=== PATIENT | male | born 1945 | race Caucasian/White ===

== ENCOUNTER 2018-03-26 04:02 | Emergency (ER) | payer OTHER ==
[2018-03-26] MEDS ORDERED: SODIUM CHLORIDE 1,000 ML IV STA (04:25)
[2018-03-26] MEDS ORDERED: morphine CARPU-JECT 4 MG/1 ML DISP.SYRIN IVPUSH ONE (04:25)
[2018-03-26 04:30] VITALS: TEMP 97.4; BMI 30.9
[2018-03-26] MEDS ORDERED: ONDANSETRON 4 MG/2 ML VIAL IVPUSH ONE (04:35)
--- NOTE | 2018-03-26 04:35 | PDOC ---
History of Present Illness - General Chief Complaint: Pain, Acute Stated Complaint: ABD PAIN Time Seen by Provider: 03/26/18 04:11 History Source: Patient Exam Limitations: No Limitations - History of Present Illness Initial Comments: 03/26/18 04:32 72 year old male with PMH HTN, DM, kidney stones, bladder spasms presented to ED for lower abdominal pain associated with vomiting x2 days. He described the pain to be located to his RLQ, LLQ, suprapubic area, constant, 10/10, no alleviating or aggravating factors. He denied diarrhea, dysuria, chest pain, shortness of breath, hematuria. Past History - Past Medical History Allergies/Adverse Reactions: Allergies Allergy/AdvReac Type Severity Reaction Status Date / Time No Known Allergies Allergy Verified 03/26/18 04:29 Home Medications: Ambulatory Orders Glyburide 10 mg PO BID 07/08/12 Metformin HCl [Riomet] 850 mg PO BID 07/08/12 Lisinopril 5 mg PO DAILY 03/26/18 Naproxen [Naprosyn -] 500 mg PO BID #14 tablet 03/26/18 [place]-3 Fatty Acids [[place]-3] 1,000 mg PO BID 03/26/18 Tamsulosin HCl 0.4 mg PO BID 03/26/18 traZODone HCL [Trazodone HCl] 100 mg PO DAILY 03/26/18 Diabetes: Yes HTN: Yes Kidney Stones: Yes (enlarged prostate, recurrent UTI>.) - Suicide/Smoking/Psychosocial Hx Smoking Status: No Smoking History: Never smoked Have you smoked in the past 12 months: No Number of Cigarettes Smoked Daily: 0 Information on smoking cessation initiated: No Hx Alcohol Use: No Drug/Substance Use Hx: No Substance Use Type: None Review of Systems - Review of Systems Able to Perform ROS?: Yes Comments:: 03/26/18 04:33 General: denied fever, chills, night sweats, generalized weakness. HEENT: denied sore throat, rhinorrhea, ear pain. Heart: denied chest pain, palpitations, syncope, lower extremity swelling, diaphoresis. Respiratory: denied shortness of breath, cough, sputum production, hemoptysis. Abdomen: admitted to abdominal pain, nausea, vomiting. denied diarrhea, constipation, blood in stool. : denied dysuria, increased urinary frequency, hematuria, urinary incontinence , flank pain. Back: denied back pain. Musculoskeletal: denied joint pain, muscle pain, joint swelling. Neurological: denied headache, dizziness, numbness, tingling, weakness. Skin: denied rash, laceration, abrasion. *Physical Exam - Vital Signs Last Vital Signs Temp Pulse Resp BP Pulse Ox 97.4 F L 74 20 193/91 H 100 03/26/18 04:29 03/26/18 04:29 03/26/18 04:29 03/26/18 04:29 03/26/18 04:29 - Physical Exam Comments: 03/26/18 04:34 Constitutional: Well-nourished, Well-developed, appearing stated age. appears in pain. HEENT: head is normocephalic, atraumatic. EOMI. PERRLA. Neck: supple. Full ROM. Heart: regular rhythm. no murmurs, rubs or gallops. Lungs: clear to auscultation bilaterally. no crackles, rhonchi or wheezing. no stridor. Abdomen: soft, flat. tenderness to RLQ, LLQ, suprapubic area. normal bowel sounds. no rebound, guarding, masses. Back: CVA tenderness negative bilaterally. Extremities: Peripheral pulses intact. No lower extremity edema. Neurological: CN 2-12 grossly intact. Moves all four extremities. Psych: awake, alert, oriented x3. Follows commands. Answers questions appropriately. Moderate Sedation - Procedure Monitoring Vital Signs: Procedure Monitoring Vital Signs Temperature 97.4 F L 03/26/18 04:29 Pulse Rate 74 03/26/18 04:29 Respiratory Rate 20 03/26/18 04:29 Blood Pressure 193/91 H 03/26/18 04:29 O2 Sat by Pulse Oximetry (%) 100 03/26/18 04:29 ED Treatment Course - LABORATORY CBC & Chemistry Diagram: 03/26/18 04:22 03/26/18 04:22 Medical Decision Making - Medical Decision Making 03/26/18 04:34 72 year old male with above PMH presented to ED for lower abdominal pain associated with vomiting. Initial Vital Signs Temp Pulse Resp BP Pulse Ox 97.4 F L 74 20 193/91 H 100 03/26/18 04:29 03/26/18 04:29 03/26/18 04:29 03/26/18 04:29 03/26/18 04:29 Afebrile. No tachycardia. No tachypnea. Hypertensive. - Pt is in pain No hypoxia on room air. Labs ordered: CBC, CMP, UA/UC, Lipase, lactate Imaging ordered: CT abdomen/pelvis with IV contrast Medications ordered: zofran, 1000 cc normal saline bolus, morphine 4 mg\ EKG performed at Bedside US performed: Left kidney no hydro Right kidney no hydro No AAA 03/26/18 05:45 Pt reported improvement of pain with morphine. 03/26/18 06:03 CBC WBC 7.9 K/mm3 (4.0-10.0) 03/26/18 04:22 RBC 5.04 M/mm3 (4.00-5.60) 03/26/18 04:22 Hgb 14.7 GM/dL (11.7-16.9) 03/26/18 04:22 Hct 44.3 % (35.4-49) 03/26/18 04:22 MCV 87.9 fl (80-96) 03/26/18 04:22 MCH 29.2 pg (25.7-33.7) 03/26/18 04:22 MCHC 33.2 g/dl (32.0-35.9) 03/26/18 04:22 RDW 12.7 % (11.9-15.9) 03/26/18 04:22 Plt Count 189 K/MM3 (134-434) 03/26/18 04:22 MPV 8.4 fl (7.5-11.1) 03/26/18 04:22 Absolute Neuts (auto) 6.2 K/mm3 (1.5-8.0) 03/26/18 04:22 Neutrophils % 77.8 % (42.8-82.8) D 03/26/18 04:22 Lymphocytes % 15.2 % (8-40) D 03/26/18 04:22 Monocytes % 6.6 % (3.8-10.2) 03/26/18 04:22 Eosinophils % 0.0 % (0-4.5) D 03/26/18 04:22 Basophils % 0.4 % (0-2.0) 03/26/18 04:22 Nucleated RBC % 0 % (0-0) 03/26/18 04:22 No leukocytosis. No anemia. CMP Sodium 134 mmol/L (136-145) L 03/26/18 04:22 Potassium 4.3 mmol/L (3.5-5.1) 03/26/18 04:22 Chloride 99 mmol/L (98-107) 03/26/18 04:22 Carbon Dioxide 26 mmol/L (21-32) 03/26/18 04:22 Anion Gap 9 MMOL/L (8-16) 03/26/18 04:22 BUN 10 mg/dL (7-18) 03/26/18 04:22 Creatinine 0.7 mg/dL (0.55-1.3) 03/26/18 04:22 Creat Clearance w eGFR > 60 (>60) 03/26/18 04:22 Random Glucose 229 mg/dL (74-106) H 03/26/18 04:22 Calcium 8.7 mg/dL (8.5-10.1) 03/26/18 04:22 Total Bilirubin 1.1 mg/dL (0.2-1) H 03/26/18 04:22 AST 21 U/L (15-37) 03/26/18 04:22 ALT 24 U/L (13-61) 03/26/18 04:22 Alkaline Phosphatase 85 U/L (45-117) 03/26/18 04:22 Total Protein 7.6 g/dl (6.4-8.2) 03/26/18 04:22 Albumin 3.9 g/dl (3.4-5.0) 03/26/18 04:22 Lipase 123 U/L (73-393) 03/26/18 04:22 No clinically concerning electrolyte abnormalities. Hyperglycemia. No transaminitis. Normal lipase. Urine Test Results Urine Color Yellow 03/26/18 05:03 Urine Appearance Clear 03/26/18 05:03 Urine pH 6.0 (5.0-8.0) 03/26/18 05:03 Ur Specific [place] 1.016 (1.010-1.035) 03/26/18 05:03 Urine Protein 2+ (NEGATIVE) H 03/26/18 05:03 Urine Glucose (UA) 3+ (NEGATIVE) H 03/26/18 05:03 Urine Ketones Trace (NEGATIVE) H 03/26/18 05:03 Urine Blood Negative (NEGATIVE) 03/26/18 05:03 Urine Nitrite Negative (NEGATIVE) 03/26/18 05:03 Urine Bilirubin Negative (<2.0 mg/dL) 03/26/18 05:03 Ur Leukocyte Esterase Negative (NEGATIVE) 03/26/18 05:03 No evidence of UTI. No blood in urine. - Kidney stone unlikely Spilling glucose into urine. 03/26/18 07:05 Lactate 1.1 - Mesenteric ischemia unlikely. Pt signed out to Dr. Davis. *DC/Admit/Observation/Transfer Diagnosis at time of Disposition: Bladder spasms Abdominal pain Qualifiers: Abdominal location: lower abdomen, unspecified Qualified Code(s): R10.30 - Lower abdominal pain, unspecified - Discharge Dispostion Disposition: HOME Condition at time of disposition: Good - Prescriptions Prescriptions: Naproxen [Naprosyn -] 500 mg PO BID #14 tablet - Referrals Referrals: Sergey Barcenas [Other] Vaughn Foote MD [Staff Physician] - - Patient Instructions Printed Discharge Instructions: DI for Abdominal Pain-Adult Additional Instructions: Te vieron aqu hoy por dolor abdominal. Radha pruebas fueron negativas para cualquier infeccin o problemas en el abdomen. Usted puede tener espasmos de vejiga. Llam al Dr. Foote y l sugiere continuar con Naprosyn para controlar el dolor. Usted debe programar para hacer ermias amanda en la oficina. Por favor, trate de programar ermias amanda en los prximos patel. Ermias receta para Naprosyn fue enviada a cedeño farmacia. Tan segn las indicaciones. Regrese a la augie de emergencias si el dolor empeora, observa collins en la orina o en las heces, comienza a vomitar, tiene fiebre o si aparece algn sntoma nuevo. Latasha You were seen here today for abdominal pain. Your tests were negative for any infection or problems in the abdomen. You may have bladder spasms. I called Dr. Foote and he suggests continuing Naprosyn for pain control. You should schedule to make an appointment in the office. Please try to schedule an appointment in the next few days. A prescription for Naprosyn was sent to your pharmacy. Take as directed. Come back to the emergency room if pain gets worse, you notice blood in the urine or stool, you start vomiting, you have fever, or if any new concerning symptom develops. Thank you Print Language: BELARUSIAN - Post Discharge Activity
[2018-03-26] MEDS ORDERED: ONDANSETRON 4 MG/2 ML VIAL ONE (04:38)
[2018-03-26] MEDS ORDERED: morphine SULFATE 4 MG/ML VIAL ONE (04:38)
[2018-03-26 05:07] LABS: BASO % 0.4 % (0-2.0); HEMATOCRIT 44.3 % (35.4-49); HEMOGLOBIN 14.7 GM/dL (11.7-16.9); LYMPH % 15.2 % (8-40); MCH 29.2 pg (25.7-33.7); MCHC 33.2 g/dl (32.0-35.9); MEAN CELL VOLUME 87.9 fl (80-96); MEAN PLT VOLUME 8.4 fl (7.5-11.1); MONO % 6.6 % (3.8-10.2); NEUT % 77.8 % (42.8-82.8); PLATELET COUNT 189 K/MM3 (134-434); RBC 5.04 M/mm3 (4.00-5.60); RDW 12.7 % (11.9-15.9); WHITE BLOOD COUNT 7.9 K/mm3 (4.0-10.0)
[2018-03-26 05:17] LABS: URINE APPEARANCE CLEAR; URINE BILIRUBIN NEGATIVE (<2.0 mg/dL); URINE COLOR YELLOW; URINE GLUCOSE (UA) 3+ (NEGATIVE); URINE KETONE TRACE (NEGATIVE); URINE LEUK ESTERASE NEGATIVE (NEGATIVE); URINE NITRITE NEGATIVE (NEGATIVE); URINE PROTEIN 2+ (NEGATIVE); URINE UROBILINOGEN NEGATIVE mg/dL (0.2-1.0)
[2018-03-26 05:48] LABS: ALBUMIN 3.9 g/dl (3.4-5.0); ALK PHOS 85 U/L (45-117); ANION GAP 9 MMOL/L (8-16); BILIRUBIN,TOTAL 1.1 mg/dL (0.2-1); BLOOD UREA NITROGEN 10 mg/dL (7-18); CALCIUM 8.7 mg/dL (8.5-10.1); CHLORIDE 99 mmol/L (98-107); CO2 26 mmol/L (21-32); CREATININE 0.7 mg/dL (0.55-1.3); GLUCOSE,RANDOM 229 mg/dL (74-106); LIPASE 123 U/L (73-393); POTASSIUM 4.3 mmol/L (3.5-5.1); SGOT/AST 21 U/L (15-37); SGPT/ALT 24 U/L (13-61); SODIUM 134 mmol/L (136-145); TOT PROT 7.6 g/dl (6.4-8.2)
--- NOTE | 2018-03-26 06:04 | PDOC ---
Attending Attestation - Resident Resident Name: Paige Madridyla - ED Attending Attestation I have performed the following: I have examined & evaluated the patient, The case was reviewed & discussed with the resident, I agree w/resident's findings & plan - HPI HPI: 03/26/18 06:00 72 YOM with h/o DM, HTN, kidney stones presenting with mid-lower abdominal pain , n/v x 2 days. decreased BM. no urinary sx. AP moving to lower quadrants, radiating down to the groin. feels similar to prior episode of bladder spasms. no f/c. no meds taken for pain 03/26/18 07:25 - Physicial Exam PE: 03/26/18 06:01 in mild distress 2/2 pain. PERRL, EOMI, MMM, nl conjunctiva, anicteric; neck supple. lungs clear, RRR, abdomen soft +diffusely tender, worse in suprapubic and periumbilical region, no CVAT. [place] x4, no focal neuro deficits. No peripheral edema. normal color for ethnicity, WWP. - Medical Decision Making 03/26/18 06:02 DDx abdominal pain: Renal colic, ureterolithiasis, biliary colic, metabolic/ electrolyte derangements. GERD, PUD, esophageal spasm, pancreatitis, hepatitis, constipation, colitis, gastroenteritis, cholecystitis, UTI, pyelonephritis, ileus, SBO, medication side effect, hernia, appendicitis, diverticulitis, AAA, mesenteric ischemia. vitals +hypertensive 2/2 pain ED interventions: IVF, zofran, morphine analgesia. reassessment, improved clinically bedside sono Aorta wnl, max diameter prox to distal aorta <3cm. no hydronephrosis of renal system bilaterally. labs and lytes_wnl. no wbc ct. lactic negative, less likely mesenteric ischemia. CT a/p to r/o intra abdominal pathology. CT a/p negative for acute pathology, normal kidneys, no obstruction. lung nodules incidentally, diverticula w/o diverticulitis on reeval, still having lower abdominal pain similar to prior bladder spasms, has urologist he has followed previously. trial of nsaid/ditropan appropriate. dispo: s/o pending reeval, additional analgesia, dispo per incoming team 03/26/18 07:23
[2018-03-26 06:05] LABS: URINE BACTERIA RARE /hpf (NONE SEEN)
[2018-03-26] MEDS ORDERED: KETOROLAC TROMETHAMINE 30 MG/1 ML VIAL IVPUSH ONE (07:18)
[2018-03-26] MEDS ORDERED: KETOROLAC TROMETHAMINE 30 MG/1 ML VIAL ONE (07:22)
--- NOTE | 2018-03-26 07:23 | PDOC ---
*Physical Exam - Vital Signs Last Vital Signs Temp Pulse Resp BP Pulse Ox 97.4 F L 74 20 193/91 H 100 03/26/18 04:29 03/26/18 04:29 03/26/18 04:29 03/26/18 04:29 03/26/18 04:29 ED Treatment Course - LABORATORY CBC & Chemistry Diagram: 03/26/18 04:22 03/26/18 04:22 - ADDITIONAL ORDERS Additional order review: Laboratory Results 03/26/18 03/26/18 03/26/18 06:05 05:03 04:22 Sodium 134 L Potassium 4.3 Chloride 99 Carbon Dioxide 26 Anion Gap 9 BUN 10 Creatinine 0.7 Creat Clearance w eGFR > 60 Random Glucose 229 H Lactic Acid 1.1 Calcium 8.7 Total Bilirubin 1.1 H AST 21 ALT 24 Alkaline Phosphatase 85 Total Protein 7.6 Albumin 3.9 Lipase 123 Urine Color Yellow Urine Appearance Clear Urine pH 6.0 Ur Specific [place] 1.016 Urine Protein 2+ H Urine Glucose (UA) 3+ H Urine Ketones Trace H Urine Blood Negative Urine Nitrite Negative Urine Bilirubin Negative Urine Urobilinogen Negative Ur Leukocyte Esterase Negative Urine WBC (Auto) 1 Urine RBC (Auto) 1 Urine Bacteria Rare 03/26/18 04:22 RBC 5.04 MCV 87.9 MCHC 33.2 RDW 12.7 MPV 8.4 Neutrophils % 77.8 D Lymphocytes % 15.2 D Monocytes % 6.6 Eosinophils % 0.0 D Basophils % 0.4 - Medications Given in the ED: ED Medications Discontinued Medications Generic Name Dose Route Start Last Admin Trade Name Freq PRN Reason Stop Dose Admin Sodium Chloride 1,000 mls @ 1,000 mls/hr 03/26/18 04:25 03/26/18 04:43 Normal Saline - IV 03/26/18 05:24 1,000 mls/hr ASDIR STA Administration Morphine Sulfate 4 mg 03/26/18 04:25 03/26/18 04:43 Morphine Injection - IVPUSH 03/26/18 04:26 4 mg ONCE ONE Administration Ondansetron HCl 4 mg 03/26/18 04:35 03/26/18 04:44 Zofran Injection IVPUSH 03/26/18 04:36 4 mg ONCE ONE Administration Medical Decision Making - Medical Decision Making 03/26/18 07:20 -Pt signed out to me by Dr. Madrid 72 year old male with PMH HTN, DM, kidney stones presented to ED for lower abdominal pain associated with vomiting x2 days. He described the pain to be located to his RLQ, LLQ, suprapubic area, constant, 10/10, no alleviating or aggravating factors. He denied diarrhea, dysuria, chest pain, shortness of breath, hematuria. hx of bladder spasms CT scan negative for any process, no AAA, no SBO, kidneys normal. All labs wnl. Pt has received morphine. Pt still complaining of pain. Says pain feels like spasm pain. Does not remember urologist name. Will call [facility]D and find out if pt has urologist. For now will give Toradol for pain. 03/26/18 08:13 Pt says he has some relief of pain. [facility], pt says Dr. Foote sounds familiar. Called Dr. Foote office. 03/26/18 08:[address] Foote, do not give Ditropan at this time. Will give pt rx for Naproxen. Will f/u with Dr. Foote in office. 03/26/18 09:32 Vitals wnl, all workup negative. Will dc home with rx for naproxen (pt states it helps with pain). DC home *DC/Admit/Observation/Transfer Diagnosis at time of Disposition: Bladder spasms Abdominal pain Qualifiers: Abdominal location: lower abdomen, unspecified Qualified Code(s): R10.30 - Lower abdominal pain, unspecified - Discharge Dispostion Disposition: HOME Condition at time of disposition: Good Decision to Admit order: No - Prescriptions Prescriptions: Naproxen [Naprosyn -] 500 mg PO BID #14 tablet - Referrals Referrals: Vaughn Foote MD [Staff Physician] - Sergey Barcenas [Other] - Patient Instructions Printed Discharge Instructions: DI for Abdominal Pain-Adult Additional Instructions: Te vieron aqu hoy por dolor abdominal. Radha pruebas fueron negativas para cualquier infeccin o problemas en el abdomen. Usted puede tener espasmos de vejiga. Llam al Dr. Foote y l sugiere continuar con Naprosyn para controlar el dolor. Usted debe programar para hacer ermias amanda en la oficina. Por favor, trate de programar ermias amanda en los prximos patel. Ermias receta para Naprosyn fue enviada a cedeño farmacia. Tan segn las indicaciones. Regrese a la augie de emergencias si el dolor empeora, observa collins en la orina o en las heces, comienza a vomitar, tiene fiebre o si aparece algn sntoma nuevo. Latasha You were seen here today for abdominal pain. Your tests were negative for any infection or problems in the abdomen. You may have bladder spasms. I called Dr. Foote and he suggests continuing Naprosyn for pain control. You should schedule to make an appointment in the office. Please try to schedule an appointment in the next few days. A prescription for Naprosyn was sent to your pharmacy. Take as directed. Come back to the emergency room if pain gets worse, you notice blood in the urine or stool, you start vomiting, you have fever, or if any new concerning symptom develops. Thank you Print Language: CYPRIOT - Post Discharge Activity
[2018-03-26 09:17] VITALS: BP 156/92; PULSE 62
== END 2018-03-26 09:29 | disposition home or self-care (01) ==
LOC: JER 04:02
PROC: 3E0333Z Introduction of Anti-inflammatory into Peripheral Vein, Percutaneous Approach (ICD-10-PCS; principal; 2018-03-26)
PROC: 3E033NZ Introduction of Analgesics, Hypnotics, Sedatives into Peripheral Vein, Percutaneous Approach (ICD-10-PCS; 2018-03-26)
PROC: 3E033GC Introduction of Other Therapeutic Substance into Peripheral Vein, Percutaneous Approach (ICD-10-PCS; 2018-03-26)
PROC: 3E0337Z Introduction of Electrolytic and Water Balance Substance into Peripheral Vein, Percutaneous Approach (ICD-10-PCS; 2018-03-26)
DX: R10.30 Lower abdominal pain, unspecified (principal); N32.89 Other specified disorders of bladder; I10 Essential (primary) hypertension; E11.9 Type 2 diabetes mellitus without complications
CPT/HCPCS: 36415; 74177-TC; 80053; 81003; 81015; 83605; 83690; 85025; 87086; 99282-25; J7030

== ENCOUNTER 2024-03-26 13:32 | Emergency (ER) | payer OTHER ==
[2024-03-26 13:40] VITALS: BP 104/58; PULSE 96; RESP 18; TEMP 97.4; BMI 27.4
[2024-03-26] MEDS ORDERED: LIDOCAINE HCL 2% (20ML MULTI-DOSE VIAL) ONE (15:02)
[2024-03-26] MEDS: LIDOCAINE HCL 2% (50ML VIAL) SQ ONE (15:04)
[2024-03-26] MEDS ORDERED: SULFAMETHOXAZOLE/TRIMETHOPRIM 800MG/160MG D.S. TABLET ONE (15:29)
[2024-03-26] MEDS: SULFAMETHOXAZOLE/TRIMETHOPRIM 800MG/160MG D.S. TABLET PO ONE (15:39)
== END 2024-03-26 15:50 | disposition home or self-care (01) ==
LOC: JERFT 13:32
PROC: 0XQKXZZ Repair Left Hand, External Approach (ICD-10-PCS; principal; 2024-03-26)
DX: S61.215A Laceration without foreign body of left ring finger without damage to nail, initial encounter (principal); W26.8XXA Contact with other sharp object(s), not elsewhere classified, initial encounter
CPT/HCPCS: 99283-25